=== PATIENT | female | born 1960 | race Caucasian/White ===

== ENCOUNTER 2019-09-15 20:00 | Outpatient (CLI) | payer BC, SELFPAY | END 2019-09-15 20:01 | disposition home or self-care (01) | LOC: SLEEP 09-16 09:59 | PROVIDERS: Family Provider Internal Medicine; PCP Nurse Practitioner; Visit Provider Nurse Practitioner | DX: G47.33 Obstructive sleep apnea (adult) (pediatric) (principal) | CPT/HCPCS: 95810 ==

== ENCOUNTER → 2019-10-13 10:01 | Outpatient (BNVA) | payer BC, SELFPAY | PROVIDERS: Family Provider Internal Medicine; PCP Nurse Practitioner; Visit Provider Obstetrics & Gynecology | DX: D25.9 Leiomyoma of uterus, unspecified (principal) | CPT/HCPCS: 76830 ==

== ENCOUNTER → 2019-10-14 08:34 | Outpatient (BNVA) | payer BC, SELFPAY | PROVIDERS: Family Provider Internal Medicine; PCP Nurse Practitioner; Visit Provider Family Medicine | DX: D25.9 Leiomyoma of uterus, unspecified (principal) | CPT/HCPCS: 36416 ==

== ENCOUNTER → 2019-11-21 14:55 | Outpatient (BNVA) | payer BC, SELFPAY | PROVIDERS: Family Provider Internal Medicine; PCP Nurse Practitioner; Visit Provider Nurse Practitioner | DX: B37.3 Candidiasis of vulva and vagina (principal) | CPT/HCPCS: 80053; 81000 ==

== ENCOUNTER → 2019-11-29 08:15 | Outpatient (BNVA) | payer BC, SELFPAY | PROVIDERS: Family Provider Internal Medicine; PCP Nurse Practitioner; Visit Provider Nurse Practitioner | DX: R73.09 Other abnormal glucose (principal) | CPT/HCPCS: 83036 ==

== ENCOUNTER 2019-12-27 20:00 | Outpatient (CLI) | payer BC, SELFPAY | END 2019-12-27 20:01 | disposition home or self-care (01) | LOC: SLEEP 12-28 13:37 | PROVIDERS: Family Provider Internal Medicine; PCP Nurse Practitioner; Visit Provider Nurse Practitioner | DX: G47.33 Obstructive sleep apnea (adult) (pediatric) (principal) | CPT/HCPCS: 95811 ==

== ENCOUNTER 2020-02-08 09:32 | Observation (INO) | payer BC, SELFPAY ==
[2020-02-06 10:47] VITALS: BMI 38.0
[2020-02-06 11:08] LABS: Basophils # 0.1 10^3/uL (0.0-0.1); Basophils % 0.5 %; Eosinophils # 0.2 10^3/uL (0.0-0.8); Eosinophils % 2.1 %; Hematocrit 40.2 % (37.0-47.0); Hemoglobin 12.6 g/dL (11.5-15.3); Lymphocytes # 1.8 10^3/uL (0.8-4.8); Mean Corpuscular HGB Conc 31.3 g/dL (30.0-36.0); Mean Corpuscular Hemoglobin 29.5 pg (28.0-34.0); Mean Corpuscular Volume 94.1 fL (81-99); Mean Platelet Volume 10.4 fL (7.4-10.4); Monocytes # 0.9 10^3/uL (0.2-0.9); Monocytes % 9.6 %; Neutrophils # 6.2 10^3/uL (1.8-7.7); Neutrophils % 67.5 %; Nucleated Red Blood Cells % 0 %; Platelet Count 292 10^3/cmm (130-400); Red Blood Count 4.27 10^6/uL (4.1-5.3); Red Cell Distribution Width 12.9 % (12.1-15.1); White Blood Count 9.1 10^3/uL (4.0-10.0)
--- NOTE | 2020-02-06 11:14 | P.ANESASSM_ITS ---
Pre-Anesthetic Assessment Pre-Anesthetic Assessment: Height/Weight: Height 1.6 m Weight 97.522 kg Preop Diagnosis: Postmenopausal bleeding, uterine leiomyoma Proposed Procedure: Operation Date: 02/08/20 07:00 Proposed Procedures p Total Laparoscopic Hysterectomy 64176 D25.9 N95.0(Not Applicable) - Javi Feliz MD s Salpingo-Oophorectomy (Vaginal)(Bilateral) - Javi Feliz MD Social: Social History: Tobacco (quit 20 years ago) and No alcohol Exam: Pre-Anes Outpt Exam: alert, oriented x 3, clear to auscultation bilaterally and regular rate & rhythm Airway: Submandibular: WNL Cervical ROM: WNL MP: 2 Dentition: Other (teeth ok) History/ROS: No significant history except as noted Pulmonary: Pulmonary: Sleep apnea CV/HEM: CV/HEM: HTN : : None reported Hepatic: Hepatic: None reported GI: GI: None reported Metabolic: Metabolic: DM and Hyperlipidemia Musc/skel: Musc/skel: None reported Neuropsych: Neuropsych: None reported Anesthetic Plan: ASA status: 2 Anesthesia: Anesthesia Evaluation and Gener al Risk of > 500 ml blood loss (7ml/kg in children): Yes, adequate IV access and fluids planned PFSH Anesthesia PFSH: Medical History Depressed Generalized anxiety disorder HPV in female Hypertension Rosacea Uterine fibroid Surgical History S/P cholecystectomy 1998 in [place] S/P dilation and curettage 07/25/2016. D/C. Benign endocervix, benign endometrial sampling, proliferative and disordered [place] [facility] [place]. [place]/P gastro[place] 1992 in [place] S/P wisdom tooth extraction [place] Family History Family/Other Breast cancer maternal aunts x2, first cousin, maternal uncle Cervical cancer maternal 1st cousin Father Hyperlipidemia Diabetes Heart disease Grandfather Diabetes maternal Heart disease maternal Brother Heart disease Social History Smoking and tobacco status: former smoker Quit status (tobacco): has quit using tobacco Former quit date comment: quit at age 38 y/o Alcohol intake: never Substance/Drug Use: never Data Anesthesia CBC & Chem 7: 02/06/20 10:50 Other Labs: Laboratory Results - last 48 hr 02/06/20 10:50 WBC 9.1 RBC 4.27 Hgb 12.6 Hct 40.2 MCV 94.1 MCH 29.5 MCHC 31.3 RDW 12.9 Plt Count 292 MPV 10.4 Neut % (Auto) 67.5 Lymph % (Auto) 20.0 [place] % (Auto) 9.6 Eos % (Auto) 2.1 Baso % (Auto) 0.5 Neut # (Auto) 6.2 Lymph # (Auto) 1.8 [place] # (Auto) 0.9 Eos # (Auto) 0.2 Baso # (Auto) 0.1 Nucleated RBC % (auto) 0 Nucleated RBCs # 0.0 Cardiac Studies: No Data to Display
[2020-02-06 11:28] LABS: Alanine Aminotransferase 14 U/L (0-33); Albumin Level 4.1 g/dL (3.5-5.2); Alkaline Phosphatase 127 IU/L (35-105); Anion Gap 15.2 (5-19); Aspartate Amino Transferase 13 U/L (0-32); Blood Urea Nitrogen 10 mg/dL (6-20); Calcium 9.9 mg/dL (8.5-10.5); Carbon Dioxide 27 mmol/L (22-29); Chloride 100 mmol/L (98-107); Globulin 3.3 g/dL (1.3-4.6); Glomerular Filtration Rate 85.9 mL/min (90-130); Glucose 146 mg/dL (65-115); Osmolality Calculated 285 mOsm/kg (285-295); Potassium 4.2 mmol/L (3.5-5.1); Sodium 138 mmol/L (136-145); Total Bilirubin 0.3 mg/dL (0.15-1.2); Total Protein 7.4 g/dL (6.6-8.7)
[2020-02-06 11:39] LABS: Urine Appearance Clear (CLEAR); Urine Color Yellow (Yellow); pH Urine 6 (5-7)
[2020-02-06 11:40] LABS: Add Urine Microscopic? YES; Bilirubin Urine Neg (NEGATIVE); Blood Urine Neg (Negative); Glucose Urine UA Norm (Normal); Ketones Urine Negative (Negative); Leukocyte Esterase Urine 2+ (Negative); Nitrate Urine Negative (Negative); Protein Urine Neg (Negative); Urobilinogen Urine Norm (Negative); WBC Urine 15-25 /hpf (0-5)
[2020-02-06 11:46] LABS: Add Urine Culture? Yes; Bacteria Urine 1+; Mucus Urine 1+
[2020-02-08] VITALS (29 sets, daily range): BP systolic 115–170; BP diastolic 75–110; PULSE 64–81; RESP 14–20; TEMP 36.5–37.2; O2SAT 93–100
[2020-02-08] MEDS: pregabalin 150 mg Capsule 300 MG PO (06:23)
[2020-02-08] MEDS: scopolamine 1.5 Patch 1 PATCH TRANSDERMA (06:25)
[2020-02-08] MEDS: sodium chloride 0.9% 1,000 ML 30 ML IV (06:31)
[2020-02-08 06:35] LABS: Glucose Point of Care 99 mg/dL (70-110)
--- NOTE | 2020-02-08 07:01 | W.PM.OPSUD ---
Surgery/Procedure H&P Update DATE OF PROCEDURE: February 08, 2020 DATE H&P PERFORMED: 02/06/20 H&P UPDATE INFORMATION: I have reviewed H&P completed within last 30 days, I have examined patient prior to procedure and No changes to prior documentation PREOP DIAGNOSIS: Postmenopausal bleeding, uterine leiomyoma PLANNED PROCEDURE: Operation Date: 02/08/20 07:00 Proposed Procedures p Total Vaginal Hysterectomy(Not Applicable) - Javi Feliz MD s Salpingo-Oophorectomy (Vaginal)(Bilateral) - Javi Feliz MD
[2020-02-08] MEDS: ceFOXitin 2,000 MG in sodium chloride 0.9% (plus) 50 ML 100 MG IV (07:05)
--- NOTE | 2020-02-08 08:24 | SUR.OPER ---
1600- CALLED VIA CELL PHONE GIVEN UPDATE ON PATIENT AND PROGRESS OF SURGERY
[2020-02-08] MEDS: estrogens Conjugated Cream 30 gm 1 APPLIC VAGINAL (08:37)
--- NOTE | 2020-02-08 08:48 | P.OP_ITS ---
Operative Report Date of procedure: February 08, 2020 Pre-op Diagnosis: Postmenopausal bleeding, uterine leiomyoma Post-op diagnosis: same Post-op Findings: mildly enlarged uterus Procedure Done: Total vaginal hysterectomy and left salpingo-oophorectomy Specimens removed/disposition: Uterus and left fallopian tube with left Pathology: Areas and left fallopian tube and ovary Surgeon: Javi Feliz Anesthesia: General Estimated blood loss (mL): 100 IV fluids (mL): 800 Urine output (mL): 300 Complications: None. The right ovary could not be identified. Condition: stable Disposition: PACU Brief History: 59-year-old female with postmenopausal bleeding and uterine leiomyoma Procedure: After informed consent and risks, benefits, indications and alternatives reviewed with the patient was taken to the operating room. The patient was placed in dorsal lithotomy position prepped, and draped in the usual sterile fashion. The pre-procedure timeout verifying the correct patient, proce dure, site and side, could not requirements was performed and acknowledge by the OR team. A [place] catheter was placed. A Bookwalter vaginal retractor was placed into the vagina in usual manner visualize the cervix. Cervix was grasped with a single tooth tenaculum and circumferentially infiltrated with 1% Xylocaine with epinephrine. Then cervix was circumferentially incised with bovie and the bladder was dissected off the pubovesical cervical fascia anteriorly with a sponge stick and Metzenbaum scissors. The anterior peritoneal reflection was identified and the anterior cul-de-sac was entered sharply with Metzenbaum scissors. The same procedure was performed posteriorly and a posterior colpotomy was made through the posterior cul-de-sac space without difficulty and the posterior blade of the Bookwalter vaginal retractor was advanced posteriorly into the cul-de-sac. At this time, the left and right uterosacral ligaments were isolated and ligated with 0 Vicryl. The Enseal device was placed over the uterosacral ligaments on either side and was then used in a serial fashion up through the cardinal ligaments bilaterally cross-clamped, cut, and sealed with the Enseal device. Finally, the uterine arteries were cross-clamped, cut, sealed and ligated with the Enseal device. Hemostasis was assured. The broad ligaments were then serially clamped, sealed and cut with the Enseal device on both sides. Excellent hemostasis was visualized. Both cornua were clamped, sealed and cut with the Enseal device. Then the pedicles were then suture ligated with excellent hemostasis. The ut erus was excised and submitted for pathologic evaluation. No other abnormalities were noted in the pelvic cavity. The left fallopian tube and ovary were identified as with a [place] exercise using the Enseal device. The right ovary could not be identified. The peritoneum was then closed in a pursestring fashion with 0 Vicryl suture. Patient was given indigo carmine IV. The vaginal cuff angles were closed with [id number] #0 Vicryl suture on both sides and transfixed with the ipsilateral cardinal and uterosacral ligaments. The remainder of the vaginal cuff was closed with #0 Vicryl in a running locked fashion. At this time, instruments were removed from the vagina at hemostasis assured. A vaginal packing with Premarin cream was placed and the patient was taken out of dorsal lithotomy position and awakened from the general anesthesia. The patient tolerated the procedure well and was taken to the PACU recovery room in a stable condition. Sponge, lap, needle and instruments counts were correct x3.
--- NOTE | 2020-02-08 09:09 | SUR.PHASEI ---
0908- ORAL AIRWAY OUT, SIMPLE MASK IN PLACE AT 10LPM, SAT 97%
--- NOTE | 2020-02-08 10:00 | PC.NURSE ---
Pt received to floor from PACU via stretcher. Pt moved self from stretcher to bed with no assistance. Oriented to room and call light. VSS. Pt drowsy, encouraged sleep. Discussed call light again, pt verbalized understanding. Pt instructed not to try to get out of bed without nurse assistance.
[2020-02-08] MEDS: ketorolac 30 mg/mL INJ IVP ×3 (11:16→22:11)
[2020-02-08] MEDS: venlafaxine ER (24HR) 150 mg Capsule PO (11:17)
[2020-02-08] MEDS: lisinopril 10 mg Tablet PO (11:17)
[2020-02-08] MEDS: docusate sodium 100 mg Capsule PO ×2 (11:17→17:37)
[2020-02-08] MEDS: atorvastatin 40 mg Tablet 20 MG PO (11:18)
[2020-02-08] MEDS: dextrose 5%-lactated ringers 1,000 ML 125 ML IV (17:37)
[2020-02-08] MEDS: metformin 500 mg Tablet PO (20:59)
[2020-02-08] MEDS: trazodone 100 mg Tablet PO (20:59)
[2020-02-09 04:20] VITALS: BP 113/67; PULSE 76; RESP 18; TEMP 36.6
[2020-02-09 05:24] LABS: Hematocrit 36.3 % (37.0-47.0); Hemoglobin 11.4 g/dL (11.5-15.3); Mean Corpuscular HGB Conc 31.4 g/dL (30.0-36.0); Mean Corpuscular Hemoglobin 30.5 pg (28.0-34.0); Mean Corpuscular Volume 97.1 fL (81-99); Mean Platelet Volume 10.7 fL (7.4-10.4); Platelet Count 262 10^3/cmm (130-400); Red Blood Count 3.74 10^6/uL (4.1-5.3); White Blood Count 15.5 10^3/uL (4.0-10.0)
[2020-02-09 06:00] VITALS: PULSE 82; RESP 17; O2SAT 93
--- NOTE | 2020-02-09 08:42 | P.DS_ITS ---
Discharge Providers CHIEF SUSTAINABILITY OFFICER Date of Admission: 02/08/20 09:32 Date of Discharge: 02/09/20 Attending Provider at Admission: Javi Feliz MD Attending Provider at Discharge: Javi Feliz MD Primary Care Provider: JASMYNE Grant Reason for Visit Reason for Visit: Uterine Fibroid, Postmenopausal bleeding Hospital Course Hospital Course: The patient was admitted for total vaginal hysterectomy bilateral salpingo-oophorectomy due to postmenopausal bleeding and uterine leiomyoma. The procedures were performed without complication however only left salpingo-oophorectomy was able to be performed since the right ovary was not identifiable. Overnight observation was uneventful. Patient is tolerating diet well. Ambulating without difficulty. Declines any pain. Tolerating diet well. He is afebrile hemodynamically stable. Physical Exam Narrative: EXAM NARRATIVE: GA: Alert and oriented ?3. HEENT: WNL. Heart: Regular rate and rhythm. Lungs: Clear to auscultation bilaterally. Abdomen: Bowel sounds present, nontender, minimal tenderness, incision clean and dry, no redness, pain or edema. MANUFACTURING TECHNOLOGY ANALYST: No bleeding. Extremities: No edema, no cyanosis, no calves pain. Urinary Catheter Management^: [place]: Cath Placed During This Visit: yes Urinary Catheter Date of Insertion: 02/08/20 Urinary Catheter Time of Insertion: 07:40 Discharge Data Data Completed and Pending: Pending at discharge Category Date Time Status Pathology: Surgic al [PTH] Routine Pth 02/08/20 08:52 Received Labs from last 24 hours 02/09/20 04:35 WBC 15.5 H RBC 3.74 L Hgb 11.4 L Hct 36.3 L MCV 97.1 MCH 30.5 MCHC 31.4 RDW 13.0 Plt Count 262 MPV 10.7 H Vitals: Last Vital Signs Temp 97.9 F 02/09/20 04:20 Pulse 82 02/09/20 06:00 Resp 17 02/09/20 06:00 BP 113/67 02/09/20 04:20 Pulse Ox 93 02/09/20 06:00 Discharge Plan Discharge Patient Disposition: Home, Self-Care Condition: Stable Prescriptions: [place] 5-325 mg tablet 1 tab PO Q4H PRN (Reason: Postop pain) Qty: 30 RF: 0 ferrous sulfate 325 mg (65 mg iron) tablet 325 mg PO BID Qty: 60 RF: 0 Continued atorvastatin 20 mg tablet 20 mg PO DAILY RF: 0 metformin 500 mg tablet 500 mg PO .hs RF: 0 lisinopril 10 mg tablet 10 mg PO DAILY Qty: 90 RF: 0 (DME) pen needle, diabetic 33 gauge x 5/32 needle See Rx Instructions .ROUTE .MEDSUPPLY Qty: 100 RF: 0 metoprolol succinate [Toprol XL] 25 mg tablet extended release 24 hr 25 mg PO DAILY Qty: 90 RF: 0 oxybutynin chloride [Ditropan XL] 5 mg tablet extended release 24hr 5 mg PO DAILY Qty: 90 RF: 0 trazodone 100 mg tablet 100 mg PO .hs Qty: 90 RF: 0 venlafaxine 150 mg capsule,extended release 24hr 150 mg PO DAILY Qty: 90 RF: 2 (DME) cpap/ and supplies See Rx Instructions .Route .MEDSUPPLY Qty: 1 RF: 0 Discharge Orders: Discharge Order (Routine); Ordered 02/09/20 Ordered By: Javi Feliz Referrals: Javi Feliz MD [Physician] - 2 weeks Discharge Diet: As Directed Discharge Activity: Increase activity as tolerated Patient Instructions: Vaginal Hysterectomy (DC) Activity Restrictions/Additional Instructions: Pelvic rest for 6 weeks (no sex, no tampons, no vaginal douches). Return to the emergency room if any fever, increased bleeding or pain. Discharge Attestations CHIEF SUSTAINABILITY OFFICER Time Spent in Discharge Care*: greater than 30 min Specific Discharge Activities: Specific discharge activities: educating patient Coding Level of Care Code Acute Hall Tender for Steve Ross
[2020-02-09 10:00] VITALS: BP 178/94; PULSE 72; RESP 16; TEMP 36.6; O2SAT 97
[2020-02-09] MEDS: atorvastatin 40 mg Tablet 20 MG PO (10:00)
[2020-02-09] MEDS: docusate sodium 100 mg Capsule PO (10:01)
[2020-02-09] MEDS: lisinopril 10 mg Tablet PO (10:01)
[2020-02-09] MEDS: metoprolol succinate ER (24 HR) 25 mg Tablet PO (10:02)
[2020-02-09] MEDS: venlafaxine ER (24HR) 150 mg Capsule PO (10:03)
[2020-02-09] MEDS: oxybutynin chloride XL 5 MG TABLET PO (10:03)
[2020-02-09 10:20] VITALS: BP 157/89; PULSE 72; RESP 16
== END 2020-02-09 10:30 | disposition home or self-care (01) ==
LOC: OBGYN 09:33
PROVIDERS: Admitting Provider Obstetrics & Gynecology; Family Provider Internal Medicine; PCP Nurse Practitioner; Visit Provider Obstetrics & Gynecology
PROC: (CPT 58262; principal; 2020-02-08 07:00)
PROC: (CPT 58720; 2020-02-08 07:00)
DX: N95.0 Postmenopausal bleeding (principal); D25.9 Leiomyoma of uterus, unspecified; G47.30 Sleep apnea, unspecified; I10 Essential (primary) hypertension; E11.9 Type 2 diabetes mellitus without complications; E78.5 Hyperlipidemia, unspecified; F32.9 Major depressive disorder, single episode, unspecified; Z87.891 Personal history of nicotine dependence; Z79.84 Long term (current) use of oral hypoglycemic drugs
CPT/HCPCS: 58262; 12345; 36415; 36416; 80053; 81001; 81003; 82962; 85025; 85027; 86850; 86900; 87086; 88302; 88307; 96361; 96365; 96375; G0378; J0694; J1100; J1885; J2001; J2405; J2704; J3010; J3490; J7030

== ENCOUNTER 2021-05-20 08:03 | Outpatient (CLI) | payer OTHER, SELFPAY ==
--- NOTE | 2021-05-20 08:29 | FL_ITS ---
WS: [id number] Single CONTRAST UPPER GI EXAMINATION HISTORY: Z98.890 - Other specified postprocedural states, prior gastroplasty. COMPARISON: CT 08/29/2013 FLUOROSCOPY TIME: 2.9 minutes. Patient swallowed the barium mixture without difficulty. There is a focal outpouching and dilatation of the proximal stomach. Through the body of the stomach there is narrowing and irregularity of the m ucosa. There is poor distention of the body of the stomach. This is consistent with the patient's his tory of gastroplasty. These similar findings were noted on the CT of 08/29/2013. No gastroesophageal reflux Small hiatal hernia was noted during this examination which reduced. FL/FL upper GI w air* [id number] IMPRESSION: 1. Small caliber elongated body of the stomach with irregular mucosa. Consiste nt with a gastroplasty and possible gastritis. 2. Focally prominent pouch at the proximal stomach. No obstruction.
== END 2021-05-20 08:04 | disposition home or self-care (01) ==
PROVIDERS: PCP Nurse Practitioner; Visit Provider Surgery
DX: Z98.890 Other specified postprocedural states (principal)
CPT/HCPCS: 74246

== ENCOUNTER 2021-05-30 09:12 | Outpatient (CLI) | payer OTHER, SELFPAY ==
--- NOTE | 2021-05-30 09:16 | CT_ITS ---
WS: [id number] CT ABDOMEN PELVIS TECHNIQUE: Contrast-enhanced CT of the abdomen and pelvis with coronal and sagittal reformatted image s. CLINICAL INFORMATION: Z98.890 - Other specified postprocedural states COMPARISON: CT , upper GI May 20, 2021 DLP: 1178.[address] scans at [facility] use at least one of these dose optimization techniques: automated e xposure control; mA and/or kV adjustment per patient size (includes targeted exams where dose is matc hed to clinical indication); or iterative reconstruction. FINDINGS: Prior hysterectomy. Prior cholecystectomy. Hepatomegaly with diffuse fatty infiltration liver. Normal portal vein and splenic vein. Normal spleen. Normal GE junction. Postoperative changes proximal stom ach consistent with reported previous gastroplasty. Elongated configuration to the stomach as seen on the recent upper GI. Gastric rugal thickening in the distal stomach compatible with gastritis. Duode nal C-loop is normal in appearance. No evidence of gastric outlet or duodenal obstruction. Lung bases are well aerated. Adrenal glands are normal. Normal renal enhancement. No hydronephrosis. Normal pancreatic parenchymal enhancement. This normal caliber abdominal aorta. No abdominal or pelvi c lymphadenopathy. No inguinal lymphadenopathy. Normal sigmoid colon. No evidence of high-grade small or large bowel obstruction. Incidental fat-cont aining of local hernia. Mild central canal stenosis with mild disc bulging L4-L5 and L5-S1. Moderate facet arthropathy lower lumbar spine. CT/CT abdomen pelvis w con* [id number] IMPRESSION: 1. Prior postoperative changes gastroplasty with elongated configuration to th e stomach and mild gastritis in the distal stomach. 2. Proximal stomach outpouching better visualize on the recent upper GI. 3. Hepatomegaly with diffuse fatty infiltration liver. 4. Prior cholecystectomy and hysterectomy. 5. Normal caliber abdominal aorta. 6. Incidental fat-containing umbilical hernia. 7. No adenopathy in the abdomen or pelvis. 8. Mild central canal stenosis L4-L5 and L5-S1 with mild disc bulging.
[2021-05-30] MEDS: iohexol 300 mg/mL 100 mL Btl IV (11:01)
[2021-05-30] MEDS: iohexol 300 mg/mL 50 mL Btl PO (11:04)
== END 2021-05-30 09:13 | disposition home or self-care (01) ==
PROVIDERS: PCP Nurse Practitioner; Visit Provider Surgery
DX: Z98.890 Other specified postprocedural states (principal); R16.0 Hepatomegaly, not elsewhere classified; K76.0 Fatty (change of) liver, not elsewhere classified; Z90.49 Acquired absence of other specified parts of digestive tract; Z90.710 Acquired absence of both cervix and uterus; K42.9 Umbilical hernia without obstruction or gangrene; M48.061 Spinal stenosis, lumbar region without neurogenic claudication; M48.07 Spinal stenosis, lumbosacral region
CPT/HCPCS: 74177; Q9967

== ENCOUNTER → 2021-08-15 13:52 | Outpatient (BNVA) | payer OTHER, SELFPAY | PROVIDERS: PCP Nurse Practitioner; Visit Provider Nurse Practitioner | DX: E11.65 Type 2 diabetes mellitus with hyperglycemia (principal); I10 Essential (primary) hypertension | CPT/HCPCS: 80053; 80061; 81000; 83036; 84443 ==

== ENCOUNTER → 2022-02-27 16:05 | Outpatient (BNVA) | payer OTHER, SELFPAY | PROVIDERS: PCP Nurse Practitioner; Visit Provider Nurse Practitioner | DX: E66.9 Obesity, unspecified (principal); E11.65 Type 2 diabetes mellitus with hyperglycemia; I10 Essential (primary) hypertension; R00.0 Tachycardia, unspecified; N39.46 Mixed incontinence; K21.9 Gastro-esophageal reflux disease without esophagitis; F41.1 Generalized anxiety disorder; F32.9 Major depressive disorder, single episode, unspecified; E55.9 Vitamin D deficiency, unspecified | CPT/HCPCS: 80053; 80061; 82306; 83036; 84443 ==

== ENCOUNTER → 2022-04-21 16:17 | Outpatient (BNVA) | payer OTHER, SELFPAY | PROVIDERS: PCP Nurse Practitioner; Visit Provider Nurse Practitioner | DX: I10 Essential (primary) hypertension (principal); R60.9 Edema, unspecified | CPT/HCPCS: 80053; 85025 ==

== ENCOUNTER → 2022-05-29 09:35 | Outpatient (BNVA) | payer OTHER, SELFPAY | PROVIDERS: PCP Nurse Practitioner; Visit Provider Nurse Practitioner | DX: I10 Essential (primary) hypertension (principal) | CPT/HCPCS: 80048 ==

== ENCOUNTER → 2022-07-30 15:58 | Outpatient (BNVA) | payer OTHER, SELFPAY | PROVIDERS: PCP Nurse Practitioner; Visit Provider Nurse Practitioner Family | DX: R39.15 Urgency of urination (principal); B37.31 Acute candidiasis of vulva and vagina; I10 Essential (primary) hypertension | CPT/HCPCS: 81000 ==

== ENCOUNTER → 2022-09-09 16:48 | Outpatient (BNVA) | payer OTHER, SELFPAY | PROVIDERS: PCP Nurse Practitioner; Visit Provider Nurse Practitioner | DX: E11.65 Type 2 diabetes mellitus with hyperglycemia (principal); E55.9 Vitamin D deficiency, unspecified; N18.30 Chronic kidney disease, stage 3 unspecified; F32.9 Major depressive disorder, single episode, unspecified; I10 Essential (primary) hypertension; K21.9 Gastro-esophageal reflux disease without esophagitis; F41.1 Generalized anxiety disorder | CPT/HCPCS: 80053; 80061; 81000; 82306; 83036; 84443 ==

== ENCOUNTER → 2022-12-11 16:30 | Outpatient (BNVA) | payer OTHER, SELFPAY | PROVIDERS: PCP Nurse Practitioner; Visit Provider Nurse Practitioner | DX: E11.65 Type 2 diabetes mellitus with hyperglycemia (principal) | CPT/HCPCS: 80053; 81000; 83036 ==

== ENCOUNTER → 2023-07-13 16:10 | Outpatient (BNVA) | payer OTHER, SELFPAY | PROVIDERS: PCP Nurse Practitioner; Visit Provider Nurse Practitioner | DX: F32.9 Major depressive disorder, single episode, unspecified; E11.65 Type 2 diabetes mellitus with hyperglycemia; E55.9 Vitamin D deficiency, unspecified; N18.30 Chronic kidney disease, stage 3 unspecified; I10 Essential (primary) hypertension; K21.9 Gastro-esophageal reflux disease without esophagitis; F41.1 Generalized anxiety disorder; R49.0 Dysphonia; L71.9 Rosacea, unspecified; Z79.899 Other long term (current) drug therapy | CPT/HCPCS: 80053; 80061; 81000; 82607; 83036; 85651; 86038; 86140 ==

== ENCOUNTER → 2024-01-11 17:11 | Outpatient (BNVA) | payer OTHER, SELFPAY | PROVIDERS: PCP Nurse Practitioner; Visit Provider Nurse Practitioner | DX: F32.9 Major depressive disorder, single episode, unspecified (principal); E11.65 Type 2 diabetes mellitus with hyperglycemia; E55.9 Vitamin D deficiency, unspecified; N18.30 Chronic kidney disease, stage 3 unspecified; I10 Essential (primary) hypertension; K21.9 Gastro-esophageal reflux disease without esophagitis; F41.1 Generalized anxiety disorder; E11.9 Type 2 diabetes mellitus without complications | CPT/HCPCS: 80053; 80061; 83036 ==